=== PATIENT | female | born 1970 | race Hispanic/Latino ===

== ENCOUNTER → 2023-02-21 | Outpatient (CLI) | payer BC, OTHER | END | disposition home or self-care (01) | LOC: RAH 13:51 | PROVIDERS: ATTEND Nurse Practitioner Family | DX: R10.9 Unspecified abdominal pain (principal) | CPT/HCPCS: 76770 ==

== ENCOUNTER 2024-06-02 17:36 | Observation (INO) | payer OTHER ==
[~2024-06-02] VITALS: Ht 175.3 cm; Wt 105.6 kg
--- NOTE | 2024-06-02 18:00 | ERN ---
ED Note History of Present Illness Stated Complaint: SENT BY DOCTOR Chief Complaint: Chest Wall Pain Time Seen by MD: 17:37 Time Seen by Midlevel: 17:37 Dictation: The patient is a 53-year-old female with a history of cholecystectomy, hysterectomy who presents to the emergency department after being sent by her PCP for chest pain and headache. Patient reports chest pain started Sunday around 1:00 a.m.. Reports she was awakening in her sleep reports pain as dull and intermediate lasting about 10-15 minutes. Patient reports left-sided headache onset Saturday 05/27 associated with nausea and dizziness. Reports dizziness worse with movement and reports is room spinning sensation. Denies any head trauma, use of blood thinners, shortness of breath, fevers, cough Allergies: Coded Allergies: No Known Allergies (Unverified Allergy, Unknown, 06/02/24) Past Medical History RN Note Reviewed/Agreed w/PFSH: Yes Review of System Dictation Constitutional: Negative for fever,chills, and weight loss Eyes: Negative for injury, pain,redness, and discharge ENT: Negative for injury,pain or swelling Cardiovascular: Negative for palpitations, and edema positive for chest pain Respiratory: Negative for shortness of breath, cough, and wheezing, Abdomen/GI: Negative for abdominal pain,vomiting, diarrhea, and constipation positive for nausea Back: Negative for injury and pain : Negative for injury, bleeding and discharge MS/Extremity: Negative for injury and deformity Skin: Negative for rash, and discoloration Neuro: Negative for , weakness, numbness, tingling, and seizure positive for headache, dizziness Psych: Negative for suicide ideation, homicidal ideation, and hallucinations Initial Vital Sign VS Vital Signs Date Time Temp Pulse Resp B/P (MAP) Pulse Ox O2 Delivery O2 Flow Rate FiO2 06/02/24 17:57 97.9 73 16 126/73 98 Room Air 0 Physical Exam Dictation Vital Signs reviewed General Appearance: Alert, oriented x 3, no acute distress, well developed, nourished. Head and Face: non-traumatic. Eyes: PERRL, pink conjunctivas, eyelid no trauma, anterior chamber with arcus senilis. Ears: Pinnas intact and no signs of trauma or erythema ear canals clear and no discharge TM no erythema Nose: No discharge, no bleeding. Oropharynx: Mouth normal, tongue pink. pharynx clear,no erythema, tonsils no exudates, no abscesses noted, mucous membrane moist Neck: Supple, non-tender, no thyromegaly, no masses, no JVD, no bruits Breast:Deferred Chest:No tenderness, no crepitus, no paradoxical movement, no retractions Lungs:Clear, well-ventilated, symmetric, no rales, no wheezing, no rhonchi, no stridor, good breath sounds bilaterally Heart: Regular rate, regular rhythm, no murmur, no gallops Vascular: no peripheral edema, Abdomen: Soft, positive bowel sounds, nondistended, no guarding, nontender, no rebound, no masses no hepatomegaly, no splenomegaly, no Mazariegos's sign, no hernias. Rectal: Deferred Genital: Deferred Neurological: Normal speech, motor function intact, sensory function intact , no facial droop, no slurred speech, upper extremities equal and strength Musculoskeletal: Neck nontender, full range of motion, back nontender, full range of motion, Extremities: nontender, full range of motion Skin: Color pink, dry, no turgor, no rash, no lacerations, no abrasions, no contusions. Lymphatic: Deferred Results (Laboratory/Radiology) Laboratory/Radiology Laboratory Tests Test 06/02/24 18:34 06/02/24 20:27 White Blood Count 9.4 K/uL (4.8-10.8) Red Blood Count 5.00 MIL/uL (4.00-5.50) Hemoglobin 14.6 g/dL (12.0-16.0) Hematocrit 43.8 % (36-48) Mean Corpuscular Volume 87.6 fL (79-99) Mean Corpuscular Hemoglobin 29.2 pg (27.0-33.0) Mean Corpuscular Hemoglobin Concent 33.3 g/dL (32.0-36.0) Red Cell Distribution Width 13.0 % (11.0-15.5) Platelet Count 276 K/uL (130-400) Mean Platelet Volume 10.6 fL (7.5-10.5) H Immature Granulocyte % (Auto) 0.3 % (0-1) Neutrophils (%) (Auto) 58.0 % (40.0-77.0) Lymphocytes (%) (Auto) 33.0 % (21.0-51.0) Monocytes (%) (Auto) 6.9 % (3.0-13.0) Eosinophils (%) (Auto) 1.1 % (0.0-8.0) Basophils (%) (Auto) 0.7 % (0.0-5.0) Neutrophils # (Auto) 5.4 K/uL (1.8-7.7) Lymphocytes # (Auto) 3.1 K/uL (1.0-4.8) Monocytes # (Auto) 0.7 K/uL (0.1-1.0) Eosinophils # (Auto) 0.10 K/uL (0.00-0.70) Basophils # (Auto) 0.07 K/uL (0.00-0.20) Absolute Immature Granulocyte (auto 0.03 K/uL (0-1) Nucleated Red Blood Cells 0.0 % (0.0-0.19) Sodium Level 140 mmol/L (136-145) Potassium Level 4.2 mmol/L (3.5-5.1) Chloride Level 101 mmol/L (101-111) Carbon Dioxide Level 31 mmol/L (21-32) Blood Urea Nitrogen 12 mg/dL (7-18) Creatinine 0.8 mg/dL (0.5-1.0) Glomerular Filtration Rate Calc 87 mL/min (>90) Random Glucose 121 mg/dL (70-105) H Total Calcium 9.6 mg/dL (8.5-10.1) Magnesium Level 1.90 mg/dL (1.80-2.40) Total Creatine Kinase 70 U/L (21-232) Troponin I High Sensitivity 5 ng/L (4-50) B-Type Natriuretic Peptide 20 pg/mL (0-100) Lipase 45 U/L (16-77) Urine Color LIGHT-YELLOW (YELLOW) Urine Appearance CLEAR (CLEAR) Urine pH 5.0 (5.0-8.0) Urine Specific [place] 1.014 (1.001-1.031) Urine Protein NEGATIVE mg/dL (NEGATIVE) Urine Glucose (UA) NEGATIVE mg/dL (NEGATIVE) Urine Ketones NEGATIVE mg/dL (NEGATIVE) Urine Occult Blood NEGATIVE (NEGATIVE) Urine Nitrate NEGATIVE (NEGATIVE) Urine Bilirubin NEGATIVE mg/dL (NEGATIVE) Urine Urobilinogen 0.2 mg/dL (0.2-1.0) Urine Leukocyte Esterase NEGATIVE [place]/uL Urine RBC 0-1 /HPF (0-1) Urine WBC 0-1 /HPF (0-1) Urine Bacteria None /HPF (None Seen) Urine Opiates Screen NEGATIVE (NEGATIVE) Urine Barbiturates Screen NEGATIVE (NEGATIVE) Urine Phencyclidine Screen NEGATIVE (NEGATIVE) Urine Amphetamines Screen NEGATIVE (NEGATIVE) Urine Benzodiazepines Screen NEGATIVE (NEGATIVE) Urine Cocaine Screen NEGATIVE (NEGATIVE) Urine Marijuana (THC) Screen NEGATIVE (NEGATIVE) REASON: dizzy, headache ORDERING PHYSICIAN: CECE LR UNION LABORER PROCEDURE: HEAD WO - CT HEAD/BRAIN W/O CONTRAST CT HEAD/BRAIN W/O CONTRAST HISTORY: Dizziness and headaches COMPARISON: None TECHNIQUE: Multiple sequential axial images of the head were obtained from the base of the skull through vertex. Patient was not given contrast through intravenous route. FINDINGS: The ventricles and extraventricular CSF spaces are nondilated for patient's age. There is no midline shift, mass effect or herniation. No acute intracranial bleed is seen. Visualized portion of the paranasal sinuses are grossly within normal limits. IMPRESSION: 1. No acute intracranial bleed is seen. CT was performed with one or more following dose reduction techniques: automated exposure control, adjustment of the mA and kv according to patient's size, or use of a iterative reconstruction technique. REASON: cp ORDERING PHYSICIAN: CECE LR UNION LABORER PROCEDURE: CXR1VW - CHEST 1VW CHEST 1VW HISTORY: Chest pain COMPARISON: None FINDINGS: A frontal projection of the chest was obtained. No acute pulmonary infiltrates is seen. The heart is normal in size. Prominent interstitial markings are seen. Degenerative changes are seen. No evidence of aortic calcification is seen. IMPRESSION: 1. No acute pulmonary infiltrate is seen. Labs Reviewed?: Yes EKG: (+) rhythm (Sinus rhythm) EKG Comment: Date:06/02/2024 Time:1800 Ventricular rate:68 MD interval:170 QRS duration:91 QT/QTc:430 EKG interpretation: Sinus rhythm Reviewed by ED Attending no STEMI ED Course ED Course Orders Procedure Category Date Status Time Cbc With Differential LAB 06/02/24 Complete 17:54 B-Type Natriuretic LAB 06/02/24 Complete Peptide 17:54 Chest 1vw RAD 06/02/24 Resulted 17:54 12 Lead Ekg Tracing- EKG 06/02/24 Logged Technical 17:54 Magnesium LAB 06/02/24 Complete 17:54 Creatine Kinase, Total LAB 06/02/24 Complete 17:54 Troponin I High LAB 06/02/24 Complete Sensitivity 17:54 Urinalysis Profile LAB 06/02/24 Complete 17:54 Basic Metabolic Panel LAB 06/02/24 Complete 17:54 Drug Screen Urine LAB 06/02/24 Complete 17:54 Ct Head/Brain W/O CT 06/02/24 Resulted Contrast 17:54 Lipase LAB 06/02/24 Complete 17:54 0.9%Nacl 1000ml (Ns PHA 06/02/24 Complete 1000ml) 18:30 Metoclopramide 10 PHA 06/02/24 Complete Mg/2 Ml Vial (Reglan 1 18:30 Diphenhydramine Hcl PHA 06/02/24 Complete (Benadryl Inj) 18:30 Acetaminophen 500mg PHA 06/02/24 Complete Tab (Tylenol 500mg T 18:30 Aspirin 325mg Tab PHA 06/02/24 Complete (Aspirin 325mg Tab) 19:30 Troponin I High LAB 06/02/24 In Process Sensitivity 20:14 Admit Orders ADM 06/02/24 Transmitted 20:29 Edm Admit Bridge Order ADM 06/02/24 Transmitted 20:29 Troponin I High LAB 06/03/24 Verified Sensitivity 00:30 Troponin I High LAB 06/03/24 Verified Sensitivity 06:30 Troponin I High LAB 06/03/24 Verified Sensitivity 12:30 Ondansetron 4mg Inj PHA 06/02/24 In Process (Zofran 4mg Inj) 21:00 Hydralazine 20mg Inj PHA 06/02/24 In Process (Apresoline 20mg In 21:00 Enoxaparin Sodium 40 PHA 06/03/24 In Process Mg/0.4 Ml (Lovenox) 09:00 Acetaminophen 325 Tab PHA 06/02/24 In Process (Tylenol 325mg Tab 21:00 Aspirin 81mg Ec Tab PHA 06/03/24 In Process (Aspirin 81mg Ec Tab 09:00 Consistent Carb DIET 06/03/24 Transmitted Breakfast Cbc With Differential LAB 06/03/24 Verified 04:00 Phosphorus LAB 06/03/24 Verified 04:00 Basic Metabolic Panel LAB 06/03/24 Verified 04:00 Magnesium LAB 06/03/24 Verified 04:00 Urinalysis Profile LAB 06/02/24 Logged 20:35 Activity: Ad Eusebia CPOE 06/02/24 Transmitted 20:35 Vital Signs(Adult CPOE 06/02/24 Transmitted Hospitalist) 20:35 Telemetry Monitoring CPOE 06/02/24 Transmitted 20:35 Oxygen By Nc/Pulse Ox CPOE 06/02/24 Transmitted 20:35 Nurse To Enter Home CPOE 06/02/24 Transmitted Medication 20:35 Condition: CPOE 06/02/24 Transmitted 20:35 Admit Orders ADM 06/02/24 Transmitted 20:35 Morphine 2mg Syg PHA 06/02/24 In Process (Morphine 2mg Syg) 21:00 Current Medications Medications (Trade) Dose Ordered Sig/Chris Route PRN Reason Start Time Stop Time Status Last Admin Dose Admin Acetaminophen (TYLenol 325MG TAB) 650 mg Q6H PRN PO TEMPERATURE GREATER THAN 101.5 06/02/24 21:00 07/02/24 20:59 Acetaminophen (TYLenol 500MG TAB) 1,000 mg ONCE ONCE PO 06/02/24 18:30 06/02/24 18:31 DC 06/02/24 20:08 Aspirin (Aspirin 325mg Tab) 325 mg ONCE ONCE PO 06/02/24 19:30 06/02/24 19:31 DC 06/02/24 20:08 Aspirin (Aspirin 81mg Ec Tab) 81 mg DAILY PO 06/03/24 09:00 07/03/24 08:59 Diphenhydramine HCl (BENAdryl INJ) 25 mg ONCE ONCE IV 06/02/24 18:30 06/02/24 18:31 DC 06/02/24 20:09 Enoxaparin Sodium (Lovenox) 40 mg DAILY SQ 06/03/24 09:00 07/03/24 08:59 Hydralazine HCl (APRESOLine 20MG INJ) 10 mg Q6H PRN IV For:SBP above 160;DBP above 90 06/02/24 21:00 07/02/24 20:59 Metoclopramide HCl (regLAN 10MG IV) 10 mg ONCE ONCE IVP 06/02/24 18:30 06/02/24 18:31 DC 06/02/24 20:11 Morphine Sulfate (morPHINE 2MG SYG) 2 mg Q4H PRN IVP SEVERE PAIN (7-10) 06/02/24 21:00 06/09/24 20:59 Ondansetron HCl (zoFRAN 4MG INJ) 4 mg Q6H PRN IV NAUSEA/VOMITING 06/02/24 21:00 07/02/24 20:59 Sodium Chloride 1,000 ml @ 0 mls/hr ONCE ONCE IV 06/02/24 18:30 06/02/24 18:31 DC 06/02/24 20:13 Vital Signs Date Time Temp Pulse Resp B/P (MAP) Pulse Ox O2 Delivery O2 Flow Rate FiO2 06/02/24 17:57 97.9 73 16 126/73 98 Room Air 0 HEART Score Response (Comments) Value History: Moderate suspicion (+1) 1 EKG: Normal 0 Age: 45-65yrs (+1) 1 Risk Factors: No known risk factors (0) 0 Initial Troponin: Normal limit (0) 0 Total 2 Medical Decision Making [facility] The patient is a 53-year-old female with a history of cholecystectomy, hysterectomy who presents to the emergency department after being sent by her PCP for chest pain and headache. Patient reports chest pain started Sunday around 1:00 a.m.. Reports she was awakening in her sleep reports pain as dull and intermediate lasting about 10-15 minutes. Patient reports left-sided headache onset Saturday 05/27 associated with nausea and dizziness. Reports dizziness worse with movement and reports is room spinning sensation. Denies any head trauma, use of blood thinners, shortness of breath, fevers, cough CBC showed no leukocytosis, no anemia, chemistry showed no electrolyte imbalance, negative troponin, negative lipase, CT head unremarkable, chest x-ray unremarkable Differential diagnosis: ACS, costochondritis, pneumonia, pneumothorax, in tracerebral hemorrhage, vertigo, migraine headache Comorbidities: Hysterectomy, cholecystectomy Tests considered and not ordered secondary to shared decision making include: none Previous outside records reviewed: none Risk of complication and/or morbidity or mortality of patient management: The patient meets criteria for admission. Need for emergency major/minor surgery: No There are no social concerns with this patient. I independently interpreted the tests I ordered (labs, urinalysis, etc.). I discussed the case with the hospitalist for admission. Job TUCKER who accepts admission. I discussed the case with the following specialists: none. Historian: pateint. I independently interpreted imaging studies and EKGs that I ordered (US, CT, XR, EKG, etc.). External chart review: none. Medical management and examination interpretation discussions were had by me with other qualified healthcare professionals as indicated for the patient's care. DX & DISP Disposition: Inpatient Decision to Admit Date: Jun 02, 2024 Decision to Admit Time: 20:31 Departure Impression: Primary Impression: Chest pain Additional Impression: Headache Condition: Stable Referrals: VICKY SALAS (PCP) I have reviewed the case, and I agree with, Diagnosis and Plan I performed a substantive portion of the visit. I have reviewed and personally made and approve the management plan that is documented in the notes by myself with CAITLIN/resident. I acknowledged full responsibility for the patient's management plan. 53-year-old female chest pain normal EKG and troponin, heart score three admitted for chest pain workup. CECE LR Jun 02, 2024 17:59 JULIUS DURAN DO Jun 02, 2024 20:52
--- NOTE | 2024-06-02 18:40 | HMCIMG ---
CT HEAD/BRAIN W/O CONTRAST HISTORY: Dizziness and headaches COMPARISON: None TECHNIQUE: Multiple sequential axial images of the head were obtained from the base of the skull through vertex. Patient was not given contrast through intravenous route. FINDINGS: The ventricles and extraventricular CSF spaces are nondilated for patient's age. There is no midline shift, mass effect or herniation. No acute intracranial bleed is seen. Visualized portion of the paranasal sinuses are grossly within normal limits. IMPRESSION: 1. No acute intracranial bleed is seen. CT was performed with one or more following dose reduction techniques: automated exposure control, adjustment of the mA and kv according to patient's size, or use of a iterative reconstruction technique.
[2024-06-02 18:45] LABS: BASOPHILS # (AUTO) 0.07 K/uL (0.00-0.20); BASOPHILS % (AUTO) 0.7 % (0.0-5.0); EOSINOPHILS % (AUTO) 1.1 % (0.0-8.0); HEMATOCRIT 43.8 % (36-48); IMMATURE GRANULOCYTE ABSOLUTE 0.03 K/uL (0-1); LYMPHOCYTES # (AUTO) 3.1 K/uL (1.0-4.8); MEAN CORPUSCULAR HEMOGLOBIN 29.2 pg (27.0-33.0); MEAN CORPUSCULAR HGB CONC 33.3 g/dL (32.0-36.0); MEAN CORPUSCULAR VOLUME 87.6 fL (79-99); MONOCYTES # (AUTO) 0.7 K/uL (0.1-1.0); MONOCYTES % (AUTO) 6.9 % (3.0-13.0); NEUTROPHILS # (AUTO) 5.4 K/uL (1.8-7.7); PLATELET COUNT (AUTO) 276 K/uL (130-400); WHITE BLOOD COUNT (AUTO) 9.4 K/uL (4.8-10.8)
[2024-06-02 18:58] LABS: CREATININE 0.8 mg/dL (0.5-1.0); POTASSIUM 4.2 mmol/L (3.5-5.1)
[2024-06-02 19:04] LABS: MAGNESIUM 1.9 mg/dL (1.80-2.40)
--- NOTE | 2024-06-02 19:05 | HMCIMG ---
CHEST 1VW HISTORY: Chest pain COMPARISON: None FINDINGS: A frontal projection of the chest was obtained. No acute pulmonary infiltrates is seen. The heart is normal in size. Prominent interstitial markings are seen. Degenerative changes are seen. No evidence of aortic calcification is seen. IMPRESSION: 1. No acute pulmonary infiltrate is seen.
[2024-06-02 19:09] LABS: B-TYPE NATRIURETIC PEPTIDE 20 pg/mL (0-100)
--- NOTE | 2024-06-02 19:11 | NUR ---
PT CARE ASSUMED AT THIS TIME
[2024-06-02] MEDS: acetaMINOPHEN 500 MG TABLET PO ONE (20:08)
[2024-06-02] MEDS: ASPIRIN 325MG TAB PO ONE (20:08)
[2024-06-02] MEDS: DiphenhydrAMINE HCL 50 MG/ML VIAL IV ONE (20:09)
[2024-06-02] MEDS: metoCLOPRAmide 10 MG/2 ML VIAL IVP ONE (20:11)
[2024-06-02] MEDS: 0.9%NACL 1000ML 1,000 ML IV ONE (20:13)
[2024-06-02 20:38] LABS: APPEARANCE,URINE CLEAR (CLEAR); BILIRUBIN,URINE NEGATIVE (NEGATIVE); COLOR,URINE LIGHT-YELLOW (YELLOW); GLUCOSE, URINE (UA) NEGATIVE (NEGATIVE); KETONES,URINE NEGATIVE (NEGATIVE); LEUKOCYTE ESTERASE ,URINE NEGATIVE Leu/uL (NEGATIVE); NITRATE,URINE NEGATIVE (NEGATIVE); OCCULT BLOOD,URINE NEGATIVE (NEGATIVE); PROTEIN,URINE NEGATIVE (NEGATIVE); UROBILINOGEN,URINE 0.2 mg/dL (0.2-1.0)
--- NOTE | 2024-06-02 20:38 | HP ---
History of Present Illness Reason for Visit: chest pain History of Present Illness Ms Khalil is a 53-year-old female that was seen and examined today on 06/02/2024. Patient is a good historian and personal health. Patient states that she came to the emergency department with a chief complaint of chest pain. Onset was Sunday05/30/2024 at 1:00 a.m.. Location is to left pectoral area. Duration is on and off. Character is described as a dull ache. There was no aggravating factors. Symptoms are mildly alleviated with Tylenol and ibuprofen. Patient reports an associated headache which was actually her main concern today. Patient reports that headache has been ongoing for five or six days. Location is to left parietal area. Duration is on and off. Headache is also alleviated with Tylenol and ibuprofen. Patient denies any nausea, vomiting, photophobia. Today in the emergency department CBC unremarkable, chemistry unremarkable, troponin unremarkable, chest x-ray unremarkable. Emergency room physician recommended patient be admitted with a diagnosis of chest pain. Past Medical History ADDITIONAL PAST MEDICAL HISTORY: [Denies] SOCIAL HISTORY: [Former smoker, patient consumes alcohol about once a month, negative drug use. Patient lives with the son Reji Aguero. Patient has good access to health care through her insurance. 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 Patient has good access to health care through insurance. Patient denies difficulty paying her bills.] SURGICAL HISTORY: [Cholecystectomy, partial hysterectomy, right knee surgery, hernia repair] Review of Systems General: No Fever, No Chills, No Night Sweats, No Fatigue, No Malaise, No Appetite, No Other HEENT: No Head Aches, No Visual Changes, No Eye Pain, No Ear Pain, No Dysphasia, No Sinus Congestion, No Post Nasal Drip, No Sore Throat, No Other Pulmonary: No Dyspnea, No Cough, No Pleuritic Chest Pain, No Other Cardiovascular: Chest Pain; No: Palpitations, Orthopnea, Paroxysmal Noc. Dyspnea, Edema, Lt Headedness, Other Gastrointestinal: No: Nausea, Vomiting, Abdominal Pain, Diarrhea, Constipation, Melena, Hematochezia, Other Genitourinary: No Dysuria, No Frequency, No Incontinence, No Hematuria, No Retention, No Other Musculoskeletal: No: other, neck pain, shoulder pain, arm pain, back pain, hand pain, leg pain, foot pain Skin: No Urticaria, No Rash, No Other Neurological: Other (Headache); No: Weakness, Numbness, Incoordination, Change in speech, Confusion, Seizures Allergies: Coded Allergies: No Known Allergies (Unverified Allergy, Unknown, 06/02/24) Exam Vital Signs Vital Signs Date Time Temp Pulse Resp B/P (MAP) Pulse Ox O2 Delivery O2 Flow Rate FiO2 06/02/24 17:57 97.9 73 16 126/73 98 Room Air 0 General Appearance: Alert, Oriented X3, Cooperative HEENT: Atraumatic, EOMI Respiratory: Clear to auscultation, Normal air movement Cardiovascular: Normal S1, Normal S2 Abdominal: Normal bowel sounds, Soft, No tenderness Extremities: No cyanosis, No edema, Normal pulses Skin: No significant lesion Neuro: Normal gait, Normal speech, Strength at 5/5 X4 ext, Cranial nerves 3-12 NL Psych/Mental Status: Mental status NL, Mood NL, Thoughts/Content NL Assessment/Plan ASSESSMENT: [ Chest pain, POA] PLAN: [ Admit patient to medical floor as inpatient status. Place patient on telemetry monitoring. Administer aspirin 325 mg by mouth times 1 dose Continue aspirin 81 mg by mouth once daily Nitropaste 0.5 inches anterior chest wall every 8 hours Trend troponin every 6 hours x 3 sets Supplemental oxygen to maintain O2 saturation greater than 92% Consult cardiology if any elevation in troponin or troponin uptrending GI prophylaxis, famotidine DVT prophylaxis, Lovenox ADVANCED CARE PLANNING 1. Which of the following were discussed? Hospice Care - Yes Therapeutic options - Yes Advance Directives - Yes- patient states he does not have any advance directives in place at this time, however her son can make decisions for her if she becomes unable. Other discussions - patient wishes to remain a full code at this time 2. Discussed with who? Patient 3. Voluntary nature of this service was explained to the patient? Yes 4. Amount of time spent - __ 16 minutes 5. Reviewed by Physician? (if this service was performed by NPP) Yes This document was generated in part using voice recognition software, occasional wrong word or sound alike substitutions may have occurred due to the inherent limitations of voice recognition software. Read the chart carefully and recognize using context, where the substitutions have occurred. Although every effort was made to edit the content, adult educator and typing errors may occur ATTESTATION BY PHYSICIAN I have seen and examined the patient. I reviewed the documentation, medical decision making, and treatment plan as noted by the mid-level provider above. I agree with the findings and plan of care. CHAYO FRIEDMAN [facility] Jun 02, 2024 20:38
[2024-06-02 20:41] LABS: ADD UA MICROSCOPIC YES
[2024-06-02 20:43] LABS: MUCUS,URINE RARE LPF (None Seen); RBC,URINE 0-1 /HPF (0-1); WBC,URINE 0-1 /HPF (0-1)
[2024-06-02 20:44] LABS: AMPHET/METH SCREEN,URINE NEGATIVE (NEGATIVE); BARBITURATE SCREEN, URINE NEGATIVE (NEGATIVE); BENZODIAZEPINES SCREEN,URINE NEGATIVE (NEGATIVE); CANNABINOID SCREEN,URINE NEGATIVE (NEGATIVE); COCAINE SCREEN,URINE NEGATIVE (NEGATIVE); OPIATE SCREEN,URINE NEGATIVE (NEGATIVE); PHENCYCLIDINE SCREEN,URINE NEGATIVE (NEGATIVE)
[2024-06-02] MEDS ORDERED: morPHINE 2 MG SYG IVP PRN (21:00)
[2024-06-02] MEDS ORDERED: acetaMINOPHEN 325 MG TAB PO PRN (21:00)
[2024-06-02] MEDS ORDERED: hydrALAZine 20MG/ML VIAL IV PRN (21:00)
[2024-06-02] MEDS ORDERED: ondanSETRON 4MG INJ IV PRN (21:00)
[2024-06-02] MEDS ORDERED: morPHINE 4 MG SYG IVP PRN (23:30)
[2024-06-03] MEDS: ketOROlac 15MG/ML VIAL (15MG/ML) IV ONE (02:35)
--- NOTE | 2024-06-03 04:02 | NUR ---
MEDICATION RECONCILIATION NOT DONE AT THIS TIME. PT REPORTS TAKING NO PRESCRIBED HOME MEDICATIONS.
--- NOTE | 2024-06-03 05:59 | EKG ---
[facility] Test Date: 2024-06-02 Test Time: 18:00:56 Pat Name: YOLETTE MATHUR Department: [facility] Room: ED 16 Gender: F University Librarian: [id number] : 1970 Requested By: CECE LR Order Number: [id number] Reading MD: Kyrie Jacobsen Measurements Intervals [place] Rate: 68 P: 24 CO: 170 QRS: 20 QRSD: 91 T: 14 QT: 430 QTc: 457 Interpretive Statements Sinus rhythm No previous ECG available for comparison Electronically Signed On 06-03-2024 17:08:30 REAL ESTATE DEVELOPER by Kyrie Jacosben Please click the below link to view image of tracing.
--- NOTE | 2024-06-03 07:00 | NUR ---
REPORT GIVEN TO GERBER PADRON AT THIS TIME
[2024-06-03 07:06] LABS: BASOPHILS # (AUTO) 0.05 K/uL (0.00-0.20); BASOPHILS % (AUTO) 0.8 % (0.0-5.0); EOSINOPHILS # (AUTO) 0.12 K/uL (0.00-0.70); EOSINOPHILS % (AUTO) 1.8 % (0.0-8.0); HEMATOCRIT 37.2 % (36-48); IMMATURE GRANULOCYTE ABSOLUTE 0.02 K/uL (0-1); LYMPHOCYTES # (AUTO) 2.8 K/uL (1.0-4.8); LYMPHOCYTES % (AUTO) 42.5 % (21.0-51.0); MEAN CORPUSCULAR HEMOGLOBIN 29.1 pg (27.0-33.0); MEAN CORPUSCULAR HGB CONC 33.1 g/dL (32.0-36.0); MEAN CORPUSCULAR VOLUME 87.9 fL (79-99); MONOCYTES # (AUTO) 0.6 K/uL (0.1-1.0); MONOCYTES % (AUTO) 8.3 % (3.0-13.0); NEUTROPHILS # (AUTO) 3.1 K/uL (1.8-7.7); NEUTROPHILS % (AUTO) 46.3 % (40.0-77.0); PLATELET COUNT (AUTO) 226 K/uL (130-400); RED BLOOD CELL COUNT(AUTO) 4.23 MIL/uL (4.00-5.50); WHITE BLOOD COUNT (AUTO) 6.6 K/uL (4.8-10.8)
[2024-06-03 07:30] LABS: CREATININE 0.8 mg/dL (0.5-1.0); MAGNESIUM 1.9 mg/dL (1.80-2.40); PHOSPHORUS 5.4 mg/dL (2.5-4.9); POTASSIUM 4.3 mmol/L (3.5-5.1)
[2024-06-03] MEDS: ENOXAPARIN SODIUM 40 MG/0.4 ML SYRINGE SQ SCH (08:47)
[2024-06-03] MEDS: FAMOTIDINE 20MG TAB PO SCH (08:47)
[2024-06-03] MEDS: ASPIRIN 81 MG EC TAB PO SCH (08:47)
--- NOTE | 2024-06-03 11:52 | PN ---
[facility] PROGRESS NOTE Date of Service: Jun 03, 2024 Time of Service: 11:[address] Crawley SUBJECTIVE: [ 06/02/24 Ms Khalil is a 53-year-old female that was seen and examined today on 06/02/2024. Patient is a good historian and personal health. Patient states that she came to the emergency department with a chief complaint of chest pain. Onset was Sunday05/30/2024 at 1:00 a.m.. Location is to left pectoral area. Duration is on and off. Character is described as a dull ache. There was no aggravating factors. Symptoms are mildly alleviated with Tylenol and ibuprofen. Patient reports an associated headache which was actually her main concern today. Patient reports that headache has been ongoing for five or six days. Location is to left parietal area. Duration is on and off. Headache is also alleviated with Tylenol and ibuprofen. Patient denies any nausea, vomiting, photophobia. Today in the emergency department CBC unremarkable, chemistry unremarkable, troponin unremarkable, chest x-ray unremarkable. Emergency room physician recommended patient be admitted with a diagnosis of chest pain. 06/03/24 patient was seen by nurse practitioner and physician during rounding in room ED 16 lying in the bed. Patient complains of chest pain and headaches. Patient stated that she does not take any medications at home other than vitamins. Chest x-ray negative. Head CT is negative. Orthostatic vital signs negative. We are pending results of 2D echo. Anticipated discharge within 24 hours. A.m. labs] REVIEW OF SYSTEMS CONSTITUTIONAL: Denies fevers, chills, or night sweats. No unintentional weight loss reported. NEUROLOGICAL: Denies headache, amaurosis fugax, motor weakness, sensory deficit, vertigo/spinning sensation, gait abnormalities, or tremors. ENT: No hearing loss, otalgia, otorrhea, rhinitis, rhinorrhea, hoarseness, or sore throat. CARDIOVASCULAR: Denies any exertional angina, dyspnea on exertion, orthopnea, paroxysmal nocturnal dyspnea, palpitations, life-threatening arrhythmias, claudication. PULMONARY: Denies any shortness of breath, cough, phlegm/sputum, hemoptysis, pleuritic chest pain. SLEEP: Denies morning headaches, daytime somnolence or napping. Denies difficulty falling asleep, staying asleep, waking from sleep. Denies knowledge of snoring. GASTROINTESTINAL: Denies any type of dysphagia to either liquids or solids. Denies nausea, vomiting, pyrosis, early satiety, abdominal pain, diarrhea, con stipation, or changes in stool consistency or caliber. Denies coffee-ground emesis, hematemesis, hematochezia, or melanotic stools. GENITOURINARY: Denies frequency, urgency, nocturia, hematuria or incontinence (Storage/Irritative symptoms.) Low urinary stream, straining to void, urinary intermittency or hesitancy, splitting of the voiding stream, terminal dribbling. ENDOCRINOLOGIC: Denies polyuria, polydipsia, polyphagia or heat/cold intolerances. HEMATOLOGIC: Denies thrombophilia/previous clots, or coagulopathy/bleeding disorders. ONCOLOGIC: Denies personal history of malignancy. DERMATOLOGIC: Denies rashes or pruritus. PSYCHIATRIC: Denies any suicidal or homicidal ideation. Denies hallucinations. PHYSICAL EXAM GENERAL APPEARANCE: The patient is awake, alert, and oriented, in no acute card iopulmonary distress. NEUROLOGICAL: Cranial nerves II-XII grossly intact. Motor is 5/5 in bilateral upper and lower extremities proximal to distal. No sensory deficits. HEENT: Face is symmetric. Pupils are equal and reactive. Extraocular movements are intact. NECK: Supple. No JVD. No thyromegaly. No submental, submandibular, pre- /postauricular, occipital or supraclavicular lymphadenopathy. CHEST: Normal chest expansion. No Telemetry. LUNGS: Absence of any rales, rhonchi or any wheezing. CARDIOVASCULAR: Regular. S1 and S2 normal. No appreciable rubs, murmurs or gallops. ABDOMEN: Soft, nontender, and nondistended. There is no rebound, voluntary guarding, or rigidity. : Deferred. No Peters. EXTREMITIES: Non-edematous and not cyanotic. No clubbing. Good capillary refill. SKIN: No skin breakdown. Vital Signs (last 8hr) Date Time Temp Pulse Resp B/P (MAP) Pulse Ox O2 Delivery O2 Flow Rate FiO2 06/03/24 11:24 97.9 57 13 107/63 97 Room Air* 0 21 06/03/24 08:32 116/69 Room Air* 0 21 114/67 06/03/24 08:31 114/65 Room Air* 0 21 25 07:17 97.9 74 13 97/60 96 Room Air* 0 06/03/24 06:30 60 13 91/47 95 Room Air* 0 06/03/24 05:29 62 12 106/61 95 Room Air* 0 06/03/24 04:32 61 13 104/61 95 Room Air* 0 21 LABS: Laboratory: Test 06/03/24 06:29 06/02/24 20:27 06/02/24 18:34 Range/Units White Blood Count 6.6 # 4.8-10.8 K/uL Red Blood Count 4.23 4.00-5.50 MIL/uL Hemoglobin 12.3 12.0-16.0 g/dL Hematocrit 37.2 36-48 % Mean Corpuscular Volume 87.9 79-99 fL Mean Corpuscular Hemoglobin 29.1 27.0-33.0 pg Mean Corpuscular Hemoglobin Concent 33.1 32.0-36.0 g/dL Red Cell Distribution Width 13.0 11.0-15.5 % Platelet Count 226 130-400 K/uL Mean Platelet Volume 10.8 H 7.5-10.5 fL Immature Granulocyte % (Auto) 0.3 0-1 % Neutrophils (%) (Auto) 46.3 40.0-77.0 % Lymphocytes (%) (Auto) 42.5 21.0-51.0 % Monocytes (%) (Auto) 8.3 3.0-13.0 % Eosinophils (%) (Auto) 1.8 0.0-8.0 % Basophils (%) (Auto) 0.8 0.0-5.0 % Neutrophils # (Auto) 3.1 1.8-7.7 K/uL Lymphocytes # (Auto) 2.8 1.0-4.8 K/uL Monocytes # (Auto) 0.6 0.1-1.0 K/uL Eosinophils # (Auto) 0.12 0.00-0.70 K/uL Basophils # (Auto) 0.05 0.00-0.20 K/uL Absolute Immature Granulocyte (auto 0.02 0-1 K/uL Nucleated Red Blood Cells 0.0 0.0-0.19 % Sodium Level 138 136-145 mmol/L Potassium Level 4.3 3.5-5.1 mmol/L Chloride Level 102 101-111 mmol/L Carbon Dioxide Level 29 21-32 mmol/L Blood Urea Nitrogen 14 7-18 mg/dL Creatinine 0.8 0.5-1.0 mg/dL Glomerular Filtration Rate Calc 87 >90 mL/min Random Glucose 139 H 70-105 mg/dL Total Calcium 8.6 8.5-10.1 mg/dL Phosphorus Level 5.4 H 2.5-4.9 mg/dL Magnesium Level 1.90 1.80-2.40 mg/dL Troponin I High Sensitivity 7 4-50 ng/L Urine Color LIGHT-YELLOW YELLOW Urine Appearance CLEAR CLEAR Urine pH 5.0 5.0-8.0 Urine Specific [place] 1.014 1.001-1.031 Urine Protein NEGATIVE NEGATIVE mg/dL Urine Glucose (UA) NEGATIVE NEGATIVE mg/dL Urine Ketones NEGATIVE NEGATIVE mg/dL Urine Occult Blood NEGATIVE NEGATIVE Urine Nitrate NEGATIVE NEGATIVE Urine Bilirubin NEGATIVE NEGATIVE mg/dL Urine Urobilinogen 0.2 0.2-1.0 mg/dL Urine Leukocyte Esterase NEGATIVE NEGATIVE [place]/uL Urine RBC 0-1 0-1 /HPF Urine WBC 0-1 0-1 /HPF Urine Bacteria None None Seen /HPF Urine Opiates Screen NEGATIVE NEGATIVE Urine Barbiturates Screen NEGATIVE NEGATIVE Urine Phencyclidine Screen NEGATIVE NEGATIVE Urine Amphetamines Screen NEGATIVE NEGATIVE Urine Benzodiazepines Screen NEGATIVE NEGATIVE Urine Cocaine Screen NEGATIVE NEGATIVE Urine Marijuana (THC) Screen NEGATIVE NEGATIVE Total Creatine Kinase 70 21-232 U/L B-Type Natriuretic Peptide 20 0-100 pg/mL Lipase 45 16-77 U/L Current Medications Medications (Trade) Dose Ordered Sig/Chris Route PRN Reason Start Time Stop Time Status Last Admin Dose Admin Acetaminophen (TYLenol 325MG TAB) 650 mg Q6H PRN PO TEMPERATURE GREATER THAN 101.5 06/02/24 21:00 07/02/24 20:59 Aspirin (Aspirin 81mg Ec Tab) 81 mg DAILY PO 06/03/24 09:00 07/03/24 08:59 06/03/24 08:47 81 MG Enoxaparin Sodium (Lovenox) 40 mg DAILY SQ 06/03/24 09:00 07/03/24 08:59 06/03/24 08:47 40 MG Famotidine (Pepcid 20mg Tab) 20 mg DAILY PO 06/03/24 09:00 07/03/24 08:59 06/03/24 08:47 20 MG Hydralazine HCl (APRESOLine 20MG INJ) 10 mg Q6H PRN IV For:SBP above 160;DBP above 90 06/02/24 21:00 07/02/24 20:59 Morphine Sulfate (morPHINE 2MG SYG) 2 mg Q4H PRN IVP SEVERE PAIN (7-10) 06/02/24 21:00 06/02/24 23:23 DC Morphine Sulfate (morPHINE 4MG SYG) 4 mg Q4H PRN IVP SEVERE PAIN (7-10) 06/02/24 23:30 06/09/24 23:29 Ondansetron HCl (zoFRAN 4MG INJ) 4 mg Q6H PRN IV NAUSEA/VOMITING 06/02/24 21:00 07/02/24 20:59 DIAGNOSTICS / RADIOLOGY: [ ] ASSESSMENT: [ Acute chest pain of unknown origin POA Hypotension POA Ex-smoker History of cholecystectomy History of partial hysterectomy History of right knee surgery History of hernia repair] PLAN: [ Admit to: Medical-surgical floor Consults: None Antibiotics: None Tests: 2D echo NEURO: Minimize central acting medications as possible. Fall Precautions. Well lighted room through the day and minimize interruptions through the night to prevent acute delirium. PULMONARY: Supplemental 02 as needed BiPAP as necessary, for respiratory distress Titrate Fio2 to keep Spo2 > or = 90% DuoNebs and CPT as needed IS hourly while awake for pulmonary hygiene Out of bed to chair as tolerated VAP Bundle Maintain aspiration precautions at all times CARDIOVASCULAR: Follow hemodynamics. Vital signs per facility protocol GI & NUTRITION: Continue nutritional support Aspirations precautions Prokinetic agents and laxatives as needed KIDNEYS & ELECTROLYTES: Strict monitoring of intake and output Daily weights Avoid nephrotoxic agents Monitor electrolytes and replace as needed Goal urine output of 30mL/hr or 0.5mL/kg/hr Medications to be dosed according to renal function. Avoid contrast if possible ENDOCRINE: Maintain blood glucose between 100-180 at all times. Insulin sliding scale for blood glucose management Hypoglycemia and hyperglycemia protocol in place INFECTIOUS DISEASE: Trend temperature, WBC and procalcitonin level Follow cultures, deescalate antibiotics as soon as possible. Panculture if new onset fever HEMATOLOGY & COAGULATION: Monitor H&H. Keep Hgb > 7 Transfuse 1 unit of PRBC for Hgb < 7 Transfuse 1 pack of platelets of platelets < 20, 000 Watch for any signs and symptoms of bleeding SKIN: Pressure ulcer prevention per facility protocol Specialty mattress as needed Treatment plan discussed with patient and family at the bedside Medications to be reconciled once obtained by patient and/or family and available to be reconciled in computer p.r.n. 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 I reviewed the documentation, medical de cision making, and treatment plan as noted by the mid-level provider above. I agree with the findings and plan of care. Iliana Crawley MD, KATARZYNA B DIRECTOR PROCESS ENGINEERING Jun 03, 2024 11:52
--- NOTE | 2024-06-03 16:58 | HMCSR ---
APPROVED REPORT EXAM: Two-dimensional and M-mode echocardiogram with Doppler and color Doppler. INDICATION ICD: Chest Pain 2D Dimensions RVDd4.3 cmLVEF(%)56.2 (>50%)LVED Vol(simp.)116.0 mL IVSd0.7 (0.7-1.1cm)FS(%)29 %LVES Vol(simp.)45.0 mL LVDd3.5 (3.8-5.6cm)LA (2D)3.1 (1.6-4.0cm)LVEF(%, simp.)61 % PWd1.0 (0.7-1.1cm)Ao Root(2D)3.0 (2.0-3.7cm)LA ESV INDEX (4CH)22.60 mL/m2 IVSs0.7 cmLVOT diam2.1 (1.8-2.4cm)LA ESV INDEX (2CH)28.60 mL/m2 LVDs2.5 (2.5-4.0cm)LA ESV INDEX (BP)27.90 mL/m2 PWs1.4 cm M-Mode Dimensions EPSS0.8 cm LA (MM)3.1 (1.6-4.0cm) Ao Root(MM)3.4 (2.0-3.7cm) Aortic Valve AoV VTI0.3 mAo Mean GR4.0 mmHgLVOT VTI0.20 m TALHA (VMAX)2.3 cm2AVA (VTI) 2.3 cm2 Mitral Valve MV E Vmax72.3 cm/sDECEL Ycqi695 ms MV A Vmax70.8 cm/sP 1/2 T83 ms E/A ratio1.0MVA (PHT)2.7 cm2 TDI E/E' Xeklyh72.3E/E' Lateral7.0 Medial E' Peak V7.00 cm/sLateral E' Peak V10.40 cm/s Left Ventricle The left ventricle is normal size. There is normal LV segmental wall motion. There is normal left kia tricular wall thickness. LVEF is 60-65%. The left ventricular diastolic function is normal. Right Ventricle The right ventricle is mildly dilated. The right ventricular systolic function is normal. Atria The left atrium size is normal. The right atrium size is normal. Aortic Valve The aortic valve is normal in structure. No aortic regurgitation is present. There is no aortic valvu lar stenosis. Mitral Valve The mitral valve is normal in structure. There is no mitral valve regurgitation noted. There is no mi tral valve stenosis. Tricuspid Valve The tricuspid valve is normal in structure. There is no tricuspid valve regurgitation noted. Pulmonic Valve The pulmonary valve is normal in structure. There is no pulmonic valvular regurgitation. Great Vessels The aortic root is normal in size. The IVC is normal in size and collapses >50% with inspiration. Pericardium There is no pericardial effusion. Conclusion LVEF is 60-65%. There is normal LV segmental wall motion. The left ventricular diastolic function is normal. The aortic root is normal in size. There is no pericardial effusion.
[2024-06-03 18:00] VITALS: BP 141/85; PULSE 69; RESP 19; TEMP 98.1; O2SAT 95
--- NOTE | 2024-06-03 18:00 | NUR ---
PATIENT ARRIVED TO UNIT VIA STRETCHER. AWAKE AND ALERT. TELE IN PLACE. PATIENT STATES A DULL ACHE TO LEFT CHEST. NO S/S OF DISTRESS AT THIS TIME. NO SOB PRESENT. CURRENT VITALS 141/85 67 95%RA 18. BED IN LOWEST POSITION AND CALL LIGHT IN REACH.
[2024-06-03 20:00] VITALS: BP 125/67; PULSE 76; RESP 20; TEMP 98; O2SAT 96
[2024-06-04] VITALS: BP 115/67; PULSE 61; RESP 20; TEMP 98.2
[2024-06-04 04:00] VITALS: BP 107/67; PULSE 70; RESP 20; TEMP 97.8
[2024-06-04 06:08] LABS: BASOPHILS # (AUTO) 0.04 K/uL (0.00-0.20); BASOPHILS % (AUTO) 0.6 % (0.0-5.0); EOSINOPHILS # (AUTO) 0.13 K/uL (0.00-0.70); EOSINOPHILS % (AUTO) 1.9 % (0.0-8.0); HEMATOCRIT 39.1 % (36-48); IMMATURE GRANULOCYTE ABSOLUTE 0.03 K/uL (0-1); LYMPHOCYTES # (AUTO) 2.6 K/uL (1.0-4.8); LYMPHOCYTES % (AUTO) 37.4 % (21.0-51.0); MEAN CORPUSCULAR HEMOGLOBIN 29.8 pg (27.0-33.0); MEAN CORPUSCULAR HGB CONC 33.5 g/dL (32.0-36.0); MEAN CORPUSCULAR VOLUME 89.1 fL (79-99); MONOCYTES # (AUTO) 0.6 K/uL (0.1-1.0); NEUTROPHILS # (AUTO) 3.5 K/uL (1.8-7.7); NEUTROPHILS % (AUTO) 50.7 % (40.0-77.0); PLATELET COUNT (AUTO) 205 K/uL (130-400); RED BLOOD CELL COUNT(AUTO) 4.39 MIL/uL (4.00-5.50); RED CELL DISTRIBUTION WIDTH 12.9 % (11.0-15.5); WHITE BLOOD COUNT (AUTO) 6.9 K/uL (4.8-10.8)
[2024-06-04 06:22] LABS: ALBUMIN 3.1 g/dL (3.5-5.0); BILIRUBIN,TOTAL 0.4 mg/dL (0.2-1.0); CREATININE 0.8 mg/dL (0.5-1.0); MAGNESIUM 1.9 mg/dL (1.80-2.40); POTASSIUM 4.5 mmol/L (3.5-5.1); TOTAL PROTEIN, SERUM 5.9 g/dL (6.0-8.3)
[2024-06-04 07:30] VITALS: O2SAT 96
[2024-06-04 08:00] VITALS: BP 116/79; PULSE 72; RESP 20; TEMP 98.1
--- NOTE | 2024-06-04 08:50 | NUR ---
DCP:HOME SW met with p and her son Reji Aguero [id number]. Pt works at [employer], is active. Son lives with pt. Pt is able to complete ADLS, home management, and meal prep. Pt needs no DME or in home care services. PCP is Milli wheeler and uses [facility] for rx. Pt states she will return home at id Addendum: 06/04/24 at 0907 by MALIK DELGADILLO SS Amended: Links added.
[2024-06-04] MEDS ORDERED: TOPI-97 PO (10:56)
[2024-06-04] MEDS ORDERED: AEC81 PO (10:56)
[2024-06-04] MEDS ORDERED: FAMO20TA8 PO (10:56)
--- NOTE | 2024-06-04 10:59 | DS ---
Discharge Summary Hospital Course Summary: DATE OF ADMISSION:[06/02/2024] DATE OF DISCHARGE:[06/04/2024] DISPOSITION:[Home] CONDITION:[Medically stable] CONSULTANTS:[None] FOLLOW UP APPOINTMENTS:[PCP 2 to 3 days. Neurologist Within one week for migraines] PROCEDURES:[ none] IMAGING: report attached to summary MICROBIOLOGY: report attached to summary ACTIVITY:[Independent] HOME MEDICATIONS: see med recc NEW MEDICATIONS:[See med rec] EMERGENCY INSTRUCTIONS: The patient was instructed to present to the nearest Emergency departmentr or call 911 once their symptoms will return or worsen Machine Set Up Operator(s): Ms Khalil is a 53-year-old female that was seen and examined today on 06/02/2024. Patient is a good historian and personal health. Patient states that she came to the emergency department with a chief complaint of chest pain. Onset was Sunday05/30/2024 at 1:00 a.m.. Location is to left pectoral area. Duration is on and off. Character is described as a dull ache. There was no aggravating factors. Symptoms are mildly alleviated with Tylenol and ibuprofen. Patient reports an associated headache which was actually her main concern today. Patient reports that headache has been ongoing for five or six days. Location is to left parietal area. Duration is on and off. Headache is also alleviated with Tylenol and ibuprofen. Patient denies any nausea, vomiting, photophobia. Today in the emergency department CBC unremarkable, chemistry unremarkable, troponin unremarkable, chest x-ray unremarkable. Emergency room physician recommended patient be admitted with a diagnosis of chest pain. Throughout the hospitalization chest x-ray was performed was negative. Head CT was negative. 2D echo shows 60 to 65% normal diastolic function. Troponins negative x3. Orthostatic vital signs negative. Today patient is denying any chest pain. Patient will be discharged home follow up with PCP in 2 to 3 days. Follow up with neurologist for ongoing migraines within a week. Procedure(s): Review of Systems General: No Fever, No Chills, No Night Sweats, No Fatigue, No Malaise, No Appetite, No Other HEENT: No Head Aches, No Visual Changes, No Eye Pain, No Ear Pain, No Dysphasia, No Sinus Congestion, No Post Nasal Drip, No Sore Throat, No Other Pulmonary: No Dyspnea, No Cough, No Pleuritic Chest Pain, No Other Cardiovascular: Chest Pain; No: Palpitations, Orthopnea, Paroxysmal Noc. Dyspnea, Edema, Lt Headedness, Other Gastrointestinal: No: Nausea, Vomiting, Abdominal Pain, Diarrhea, Constipation, Melena, Hematochezia, Other Genitourinary: No Dysuria, No Frequency, No Incontinence, No Hematuria, No Retention, No Other Musculoskeletal: No: other, neck pain, shoulder pain, arm pain, back pain, hand pain, leg pain, foot pain Skin: No Urticaria, No Rash, No Other Neurological: Other (Headache); No: Weakness, Numbness, Incoordination, Change in speech, Confusion, Seizures Allergies: Coded Allergies: No Known Allergies (Unverified Allergy, Unknown, 06/02/24) Assessment/Plan: ASSESSMENT: [ Acute chest pain of unknown origin POA Hypotension POA migraines POA Ex-smoker History of cholecystectomy History of partial hysterectomy History of right knee surgery History of hernia repair] Time spent arranging discharge: 31-60 minutes ATTESTATION BY PHYSICIAN I have seen and examined the patient. I reviewed the documentation, medical decision making, and treatment plan as noted by the mid-level provider above. I agree with the findings and plan of care. Iliana Crawley MD, KATARZYNA B QUALITY PROCESS AUDITOR Jun 04, 2024 10:59
[2024-06-04 12:00] VITALS: BP 111/68; PULSE 68; RESP 20; TEMP 98
== END 2024-06-04 13:30 | disposition home or self-care (01) ==
LOC: EDH 17:36 → EDHIP 20:35 → INTOOBSV 20:35 → 3CH 06-03 18:00
PROVIDERS: ADMIT Internal Medicine; ATTEND Internal Medicine
DX: R07.89 Other chest pain (principal); I95.9 Hypotension, unspecified; G43.909 Migraine, unspecified, not intractable, without status migrainosus; Z90.49 Acquired absence of other specified parts of digestive tract; Z79.82 Long term (current) use of aspirin; Z90.711 Acquired absence of uterus with remaining cervical stump; Z87.891 Personal history of nicotine dependence; Z79.899 Other long term (current) drug therapy; Z87.760 Personal history of (corrected) congenital diaphragmatic hernia or other congenital diaphragm malformations
CPT/HCPCS: 96374; 96361; 96375 ×2; 99285; 82550; 83735 ×3; 84484 ×5; 80048 ×2; 83880; 80305; 83690; 85025 ×3; 81001; 36415 ×3; 71045; 70450; 93005; 96372 ×2; 84100; 93306; 80053; J1200; J7030; J2765; G0378 ×17; J1650 ×2; J1885